=== PATIENT | male | born 1995 | race Caucasian/White ===

== ENCOUNTER 2016-12-13 14:43 | Emergency (ER) | payer OTHER, MEDICAID ==
[2016-12-13 14:54] VITALS: BP 129/92
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
[2016-12-13] MEDS ORDERED: Amoxicillin 250 MG Cap PO ONE (16:02)
== END 2016-12-13 16:20 | disposition home or self-care (01) ==
LOC: MERGE 14:43 → LL.ED 14:43
DX: S02.40EA Zygomatic fracture, right side, initial encounter for closed fracture (principal); Y04.0XXA Assault by unarmed brawl or fight, initial encounter; Z91.011 Allergy to milk products; Z79.899 Other long term (current) drug therapy
CPT/HCPCS: 70486; 99283; A9270; 21400

== ENCOUNTER 2017-04-08 14:44 | Emergency (ER) | payer MEDICAID, OTHER ==
[2017-04-08 14:57] VITALS: BP 120/76
[2017-04-08] MEDS ORDERED: Sodium Chloride 0.9% 10 ML Syringe FLUSH PRN (15:09)
[2017-04-08] MEDS ORDERED: Ketorolac 30 MG/ML SDV IVPUSH ONE (15:15)
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
[2017-04-08] MEDS ORDERED: Diphtheria,Pertussis(Acell),Tetanus Vaccine 0.5 ML SDV IM ONE (16:20)
== END 2017-04-08 16:50 | disposition home or self-care (01) ==
LOC: LL.ED 14:44
DX: S61.412A Laceration without foreign body of left hand, initial encounter (principal); S61.411A Laceration without foreign body of right hand, initial encounter; S70.02XA Contusion of left hip, initial encounter; S80.811A Abrasion, right lower leg, initial encounter; Z23 Encounter for immunization; F17.210 Nicotine dependence, cigarettes, uncomplicated; Z91.011 Allergy to milk products; W14.XXXA Fall from tree, initial encounter
CPT/HCPCS: 71020; 72100; 73502; 81001; 90471; 90715; 96374; 99284; J1885; J7050

== ENCOUNTER 2019-03-30 01:10 | Emergency (ER) | payer MEDICAID ==
[2019-03-30 01:25] VITALS: BP 114/74; PULSE 70
--- NOTE | 2019-03-30 01:26 | EDM.PDOC ---
ED HPI GENERAL MEDICAL PROBLEM - General Chief Complaint: Upper Extremity Injury/Pain Stated Complaint: hand pain/injury Time Seen by Provider: 03/30/19 01:20 Source of Information: Reports: Patient, Old Records ([facility] chart/EMR), Significant Other History Limitations: Reports: No Limitations - History of Present Illness INITIAL COMMENTS - FREE TEXT/NARRATIVE: The patient was brought to the emergency room via private automobile by his significant other for evaluation of 13/10 right hand pain secondary to an injury at home, which occurred at about 00:30 hours this morning. The patient was angry when he hit a wall at his home with a stud apparently in this area. He is right-handed and has not injured this hand in the past. The patient did use some ice packs, however no other medications treatment prior to arrival. No history of paresthesias, neurological deficits, or other complaints or injuries. No recent history of abdominal pain, heartburn, nausea, diarrhea, melena, gross hematochezia, or any food intolerance, including fatty foods, etc.. The patient also denies any recent fever, cough, wheezing, dyspnea, etc.. Onset: Today, Sudden Onset Date: 03/30/19 Onset Time: 00:30 Duration: Constant Location: Reports: Upper Extremity, Right, Radiates to (Up his right arm). Denies: Head, Face, Neck, Abdomen, Back, Pelvis, Upper Extremity, Left Quality: Reports: Same as Previous Episode, Stabbing, Throbbing Severity: Severe Improves with: Reports: Rest Worsens with: Reports: Movement Context: Reports: Trauma Associated Symptoms: Reports: No Other Symptoms. 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 Denies: Allergic Rhinitis, Hard of Hearing, Impaired Vision Cardiovascular History: Reports: None. Denies: Afib, Aneurysm, Arrhythmia, Blood Clots/VTE/DVT, Heart Murmur, High Cholesterol, Hypertension, Syncope Respiratory History: Reports: None. Denies: Asthma, COPD, Intubation, Previous Gastrointestinal History: Reports: GERD. Denies: GI Bleed, PUD Genitourinary History: Reports: None. Denies: Acute Renal Failure, Chronic Renal Insuffiency, Renal Calculus, STD Musculoskeletal History: Reports: Arthritis, Back Pain, Chronic, Fracture, Osteoarthritis, Other (See Below) Other Musculoskeletal History: Bilateral clavicular fractures at about age 11. Right maxillary zygomatic arch/orbital and nasal fractures on 12/11/16. Hairline right fibular fracture in 2012. Neurological History: Reports: None. Denies: Concussion, Headaches, Chronic, Head Trauma, Migraines, Seizure Psychiatric History: Reports: None. Denies: Abuse, Victim of, ADD, ADHD, Anxiety, Depression, Psych Hospitalization(s), PTSD, Suicide Attempt, Suicidal Ideation Endocrine/Metabolic History: Reports: None. Denies: Diabetes, Type I, Diabetes , Type II, Hypothyroidism, IDDM Hematologic History: Reports: None. Denies: Anemia, Blood Transfusion(s) Immunologic History: Reports: None. Denies: AIDS, HIV, SLE Oncologic (Cancer) History: Reports: None Dermatologic History: Reports: None. Denies: Eczema, Psoriasis - Infectious Disease History Infectious Disease History: Reports: Chicken Pox. Denies: C-Difficile, Measles , Meningitis, Mononucleosis, MRSA, Mumps, Pertussis (Whooping Cough), Rheumatic Fever, Scarlet Fever, Shingles, TB, VRE - Past Surgical History Head Surgeries/Procedures: Reports: None HEENT Surgical History: Reports: Oral Surgery, Other (See Below). Denies: Adenoidectomy, Eye Surgery, Laser Surgery, Myringotomy w Tube(s), Naso-Sinus Surgery, Tonsillectomy Other HEENT Surgeries/Procedures: [place] teeth extraction 2 upper in about 2013 Cardiovascular Surgical History: Reports: None. Denies: Varicose Respiratory Surgical History: Reports: None. Denies: Thoracentesis GI Surgical History: Reports: None. Denies: Appendectomy, Cholecystectomy, Colonoscopy, EGD, Hernia, Abdominal, Hernia, Inguinal, Hernia Repair/Other Male Surgical History: Reports: Circumcision, Other (See Below). Denies: Vasectomy Other Male Surgeries/Procedures: Circumcision as an infant. Endocrine Surgical History: Reports: None. Denies: Thyroid Biopsy Neurological Surgical History: Reports: None. Denies: C-Spine, Discectomy, Laminectomy, Lumbar Spine, Sacral Spine, Spinal Fusion, Thoracic Spine, Vertebroplasty Musculoskeletal Surgical History: Reports: None. Denies: Arthroscopic Procedure , Carpal Tunnel, Ganglion Cyst, Joint Replacement, ORIF, Shoulder Surgery Oncologic Surgical History: Reports: None Dermatological Surgical History: Reports: None Social & Family History - Family History Family Medical History: Noncontributory - Tobacco Use Smoking Status *Q: Current Every Day Smoker Tobacco Use Within Last Twelve Months: Cigarettes Years of Tobacco use: 9 Packs/Tins Daily: 0.5 Packs/Tins Daily Comment: Started smoking at age 14 with maximum use of one pack per day. Used Tobacco, but Quit: No Smoking Cessation Information Provided To Patient: Yes Second Hand Smoke Exposure: Yes Source of Second Hand Smoke Exposure: Significant other Second Hand Smoke Education Provided: Yes - Caffeine Use Caffeine Use: Reports: Coffee (One cup per week), Energy Drinks (One can per week), Soda (1 soda per month), Tea (1 L 4 times per week) - Alcohol Use Alcohol Use History: Yes Days Per Week of Alcohol Use: 2 Number of Drinks Per Day: 12 Number of Drinks Per Day Comment: Usually beer with occasional mixed drinks. No previous DWIs, problems with alcohol abuse, etc. Total Drinks Per Week: 24 Date of Last Drink: 03/30/19 Alcohol Use in Last Twelve Months: Yes Alcohol Use Frequency: Binges - Recreational Drug Use Recreational Drug Use: Yes Drug Use in Last 12 Months: No Recreational Drug Type: Reports: Marijuana/Hashish (Experimented 2012). 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 ED EXAM, GENERAL - Physical Exam Exam: See Below Exam Limited By: No Limitations General Appearance: Alert, WD/WN, No Apparent Distress Head: Atraumatic, Normocephalic. No: Facial Swelling, Facial Tenderness, Sinus Tenderness Neck: Normal Inspection, Supple, Non-Tender, Full Range of Motion. No: Lymphadenopathy (L), Lymphadenopathy (R), Thyromegaly Respiratory/Chest: No Respiratory Distress, Lungs Clear, Normal Breath Sounds, No Accessory Muscle Use, Chest Non-Tender. No: Pleural Rub, Retractions Cardiovascular: Normal Peripheral Pulses, Regular Rate, Rhythm, No Edema, No Gallop, No JVD, No Murmur, No Rub. No: Gallop/S3, Gallop/S4, Friction Rub Peripheral Pulses: 2+: Radial (L), Radial (R) GI/Abdominal: Normal Bowel Sounds, Soft, Non-Tender, No Organomegaly, No Distention, No Abnormal Bruit, No Mass, Pelvis Stable. No: Guarding (Male) Exam: Deferred Rectal (Males) Exam: Deferred Back Exam: Normal Inspection, Full Range of Motion. No: CVA Tenderness (L), CVA Tenderness (R), Muscle Spasm Extremities: No Pedal Edema, Normal Capillary Refill, Limited Range of Motion ( Right hand secondary to pain and swelling), Other (3 cm in diameter area of moderate swelling over the proximal dorsal aspect of the third and fourth metacarpals of the right hand with moderate localized tenderness by palpation in this area) Neurological: Alert, Oriented, CN II-XII Intact, Normal Cognition, Normal Gait, Normal Reflexes, No Motor/Sensory Deficits, Other (mild intoxication) Psychiatric: Anxious (Mild), Depressed Mood (Borderline) Skin Exam: Warm, Dry, Intact, Normal Color, No Rash. No: Diaphoretic, Ecchymosis, Wound/Incision Lymphatic: No Adenopathy ED TRAUMA EXTREMITY PROCEDURES - Joint Reduction Site: Other (Right proximal third and fourth metacarpals) Sedation: Hematoma/Fracture Block Local Anesthesia - Lidocaine (Xylocaine): 1% Plain Local Anesthetic Volume: Other (7 mL) Pre-Procedure NV Status: Normal Post-Procedure NV Status: Normal Technique: Traction/Counter Traction Number of Attempts: 1 Post-Reduction Imaging: Completely Reduced, Fracture Seen (As below) Joint Reduction Complications: No - Splinting Right Upper Extremity Splint Site: Right hand Pre-Procedure NV Status: Normal Post-Procedure NV Status: Normal Splint Material: Other (3" x 12" padded fiberglass splints x 2 secured with Jorge wrap2 inch) Splint Design: Other (Dorsal/ventral short arm) Applied & Form Fitted By: Provider Provider Post-Splint Application NV Check: NV Status Normal, Good Position Complications: No Course - Vital Signs Last Recorded V/S: Last Vital Signs Temp 36.5 C 03/30/19 01:10 Pulse 70 03/30/19 01:10 Resp 20 03/30/19 01:10 BP 114/74 03/30/19 01:10 Pulse Ox 96 03/30/19 01:10 Vital Signs - 24 hr 03/30/19 01:10 Temperature [ 36.5 C Temporal] Pulse, 70 Peripheral [ Pulse Oximetry] Respiratory 20 Rate Blood Pressure 114/74 [Left Upper Arm ] O2 Sat by Pulse 96 Oximetry - Orders/Labs/Meds Orders: Active Orders 24 hr Category Date Time Status Hand 2V Rt [CR] Stat Exams 03/30/19 01:59 Taken Hand Comp Min 3V Rt [CR] Stat Exams 03/30/19 01:27 Taken Obtain Past Medical Record [OM.PC] Routine Oth 03/30/19 01:26 Active Labs: None Meds: Medications Discontinued Medications Generic Name Dose Route Start Last Admin Trade Name Freq PRN Reason Stop Dose Admin Lidocaine HCl 5 ml 03/30/19 01:51 03/30/19 01:55 Xylocaine-Mpf 1% INJECT 03/30/19 01:52 5 ml ONETIME ONE Administration Lidocaine HCl 5 ml 03/30/19 01:51 03/30/19 01:55 Xylocaine-Mpf 1% INJECT 03/30/19 01:52 5 ml ONETIME ONE Administration - Radiology Interpretation Free Text/Narrative:: X-rays of the right hand, 3 views, shows evidence of a dorsal dislocation of the proximal third and fourth metacarpals with no fractures visible X-rays of the right hand, 2 views-postreduction, shows evidence of complete reduction of above dislocations with probable mild avulsion fracture of the proximal aspect of the fourth metacarpal Departure - Departure Time of Disposition: 03:07 Disposition: Home, Self-Care 01 Condition: Good Clinical Impression: Dislocation of metacarpal (bone), proximal end of right hand, initial encounter , Tobacco abuse counseling Fracture of metacarpal bone Qualifiers: Encounter type: initial encounter Metacarpal bone: fourth Fracture type: closed Metacarpal location: base Fracture alignment: displaced Laterality: right Qualified Code(s): S62.314A - Displaced fracture of base of fourth metacarpal bone, right hand, initial encounter for closed fracture Osteoarthritis Qualifiers: Osteoarthritis location: multiple joints Osteoarthritis type: primary Qualified Code(s): M15.0 - Primary generalized (osteo)arthritis - Discharge Information *PRESCRIPTION DRUG MONITORING PROGRAM REVIEWED*: Not Applicable *COPY OF PRESCRIPTION DRUG MONITORING REPORT IN PATIENT NEAL: Not Applicable Instructions: Health Risks of Smoking, Closed Reduction for Metacarpal Dislocation, Care After, Cast or Splint Care, Adult, [id number], Metacarpal Fracture, [id number] Referrals: Antonina Mary, [facility] [Primary Care Provider] - Forms: ED Department Discharge, ED Return to Work/School Form Additional Instructions: 1. Call for an appointment with a hand surgeon at [facility] in [place], telephone number , on 03/31 for an appointment in about one week for reevaluation, possible short arm cast placement, etc. as discussed. Your x-rays are on their PACS system. 2. Tylenol 650 mg by mouth every 4 hours and/or OTC Aleve 1-2 tabs by mouth every 12 hours with food as directed./needed. You may stagger these medications for 48-72 hours only. 3. Work excuse- See Form 4. Limited use and no lifting with the right hand as discussed until released by your hand surgeon with hand splint to be worn at all times 5. Ice packs and hand elevation as discussed 6. Stop all tobacco use CHIKA as directed/per provided information and consider contacting [employer]uit [employer]ne, etc.. 7. Discontinue all energy drinks and decrease alcohol intake as discussed 8. Immediately after this visit verify that your cellular telephone's voicemail has been activated and is empty. Also verify that your home telephone 's answering machine is operating properly and has space to receive messages. Note that it is sometimes necessary for us to be able to contact you at a later date to discuss your medical care. 9. Please remember that we are ALWAYS here for you and want to answer any questions you may have. Feel free to call the hospital any time and we call you back CHIKA. - Problem List & Annotations (1) Dislocation of metacarpal (bone), proximal end of right hand, initial encounter SNOMED Code(s): 042790028 Code(s): S63.064A - DISLOC OF MC (BONE), PROXIMAL END OF RIGHT HAND, INIT Status: Acute Priority: High Onset Date: 03/30/19 Annotation/Comment:: Successful reduction without difficulty and/or complications of the proximal third and fourth metacarpals of the right hand with subsequent splint placement as above. Activity restrictions, etc. discussed. Work Excuse provided. The patient wishes to follow-up at the [facility] in [place] with hand surgeon evaluation as per discharge orders. X-rays submitted to [facility] via PACS (2) Fracture of metacarpal bone SNOMED Code(s): 298903253 Code(s): S62.309A - UNSP FRACTURE OF UNSP METACARPAL BONE, INIT FOR CLOS FX Status: Acute Priority: High Onset Date: 03/30/19 Annotation/Comment:: Mild post reduction avulsion fracture noted, which is likely present at time of initial injury with no complications with reduction as above. Qualifiers: Encounter type: initial encounter Metacarpal bone: fourth Fracture type: closed Metacarpal location: base Fracture alignment: displaced Laterality : right Qualified Code(s): S62.314A - Displaced fracture of base of fourth metacarpal bone, right hand, initial encounter for closed fracture (3) Osteoarthritis SNOMED Code(s): 995143027 Code(s): M19.90 - UNSPECIFIED OSTEOARTHRITIS, UNSPECIFIED SITE Status: Chronic Priority: Medium Annotation/Comment:: Otherwise stable by history Qualifiers: Osteoarthritis location: multiple joints Osteoarthritis type: primary Qualified Code(s): M15.0 - Primary generalized (osteo)arthritis (4) Tobacco abuse counseling SNOMED Code(s): 077843379, 304538016, 341042821 Code(s): Z71.6 - TOBACCO ABUSE COUNSELING Status: Chronic Priority: Medium Annotation/Comment:: Tobacco cessation encouraged with information provided. Energy drink and alcohol use also discussed as per discharge instructions. - Problem List Review Problem List Initiated/Reviewed/Updated: Yes - My Orders Last 24 Hours: My Active Orders 03/30/19 01:26 Obtain Past Medical Record [OM.PC] Routine 03/30/19 01:27 Hand Comp Min 3V Rt [CR] Stat 03/30/19 01:59 Hand 2V Rt [CR] Stat - Assessment/Plan Last 24 Hours: My Active Orders 03/30/19 01:26 Obtain Past Medical Record [OM.PC] Routine 03/30/19 01:27 Hand Comp Min 3V Rt [CR] Stat 03/30/19 01:59 Hand 2V Rt [CR] Stat Assessment:: As above Plan: As above. Extensive precautions were given to the patient and his significant other, who are in agreement with the treatment plan. See Patient Instructions for further treatment and plan.
== END 2019-03-30 03:07 | disposition home or self-care (01) ==
LOC: LL.ED 01:10
DX: S62.314A Displaced fracture of base of fourth metacarpal bone, right hand, initial encounter for closed fracture (principal); S62.316A Displaced fracture of base of fifth metacarpal bone, right hand, initial encounter for closed fracture; F17.210 Nicotine dependence, cigarettes, uncomplicated; M15.0 Primary generalized (osteo)arthritis; Z91.011 Allergy to milk products; W22.8XXA Striking against or struck by other objects, initial encounter
CPT/HCPCS: 26605; 73120; 73130; 99283; J2001

== ENCOUNTER 2021-02-09 12:45 | Emergency (ER) | payer BC ==
[2021-02-09 13:01] VITALS: BP 141/88; PULSE 79
--- NOTE | 2021-02-09 13:24 | EDM.PDOC ---
ED HPI GENERAL MEDICAL PROBLEM - General Chief Complaint: Upper Extremity Injury/Pain Stated Complaint: left shoulder injury Time Seen by Provider: 02/09/21 12:48 Source of Information: Reports: Patient History Limitations: Reports: No Limitations - History of Present Illness INITIAL COMMENTS - FREE TEXT/NARRATIVE: Patient comes to ER with complaint of left shoulder pain. Fell onto shoulder when he was 'messing around with his friends' last night. Denies other injuries. Pain is located posterior shoulder joint. Worse with lifts left arm past 90 degrees. No numbness or tingling or weakness of left arm/hand. Denies other injuries/complaints. Treatments CHILDCARE DIRECTOR: Reports: Cold Therapy, Nitroglycerin Left Shoulder Pain Score (Numeric/FACES): 5 - Related Data Home Meds: Home Meds Naproxen Sodium [Aleve] 220 mg PO TID PRN 03/30/19 [History] Famotidine 40 mg PO DAILY 02/09/21 [History] Omeprazole 20 mg PO DAILY 02/09/21 [History] tiZANidine [Zanaflex] 1 tab PO Q4H 02/09/21 [History] Past Medical History - Past Health History Medical/Surgical History: Denies Medical/Surgical History HEENT History: Reports: None Cardiovascular History: Reports: None Respiratory History: Reports: None Gastrointestinal History: Reports: GERD Genitourinary History: Reports: None Musculoskeletal History: Reports: Arthritis, Back Pain, Chronic, Fracture, Osteoarthritis, Other (See Below) Other Musculoskeletal History: Bilateral clavicular fractures at about age 11. Right maxillary zygomatic arch/orbital and nasal fractures on 12/11/16. Hairline right fibular fracture in 2012. Neurological History: Reports: None Psychiatric History: Reports: None Endocrine/Metabolic History: Reports: None Hematologic History: Reports: None Immunologic History: Reports: None Oncologic (Cancer) History: Reports: None Dermatologic History: Reports: None - Infectious Disease History Infectious Disease History: Reports: Chicken Pox - Past Surgical History Head Surgeries/Procedures: Reports: None HEENT Surgical History: Reports: Oral Surgery, Other (See Below) Other HEENT Surgeries/Procedures: [place] teeth extraction 2 upper in about 2013 Cardiovascular Surgical History: Reports: None Respiratory Surgical History: Reports: None GI Surgical History: Reports: None Male Surgical History: Reports: Circumcision, Other (See Below) Other Male Surgeries/Procedures: Circumcision as an . Endocrine Surgical History: Reports: None Neurological Surgical History: Reports: None Musculoskeletal Surgical History: Reports: None, Other (See Below) Other Musculoskeletal Surgeries/Procedures:: right hand surgery with pin placement. 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 ED EXAM, GENERAL - Physical Exam Exam: See Below Exam Limited By: No Limitations General Appearance: Alert, WD/WN, No Apparent Distress Eye Exam: Bilateral Eye: EOMI, PERRL Ears: Hearing Grossly Normal Nose: No: Nasal Deformity, Nasal Swelling, Nasal Drainage Throat/Mouth: Normal Lips, Normal Voice, No Airway Compromise Head: Normocephalic Neck: Supple Respiratory/Chest: No Respiratory Distress, Lungs Clear, Normal Breath Sounds, No Accessory Muscle Use Cardiovascular: Normal Peripheral Pulses, Regular Rate, Rhythm, No Murmur GI/Abdominal: Soft, Non-Tender (Male) Exam: Deferred Rectal (Males) Exam: Deferred Back Exam: No: Muscle Spasm, Paraspinal Tenderness, Vertebral Tenderness Extremities: Normal Capillary Refill, Other (Good overall ROM but patient has discomfort when raising left arm above 90 degrees anteriorly and laterally. No crepitus. Point tender posterior left shoulder joint area. Scapula nontender. Ribs/chest nontender. ) Neurological: Alert, Oriented, Normal Cognition, Normal Gait, Other (sensation intact) Psychiatric: Normal Affect, Normal Mood Skin Exam: Warm, Dry, Intact, Normal Color. No: Ecchymosis, Increased Warmth Course - Vital Signs Last Recorded V/S: Last Vital Signs Temp 37.2 C 02/09/21 12:55 Pulse 79 02/09/21 12:55 Resp 16 02/09/21 12:55 BP 141/88 H 02/09/21 12:55 Pulse Ox 98 02/09/21 12:55 - Orders/Labs/Meds Orders: Active Orders 24 hr Category Date Time Status Shoulder Comp Lt [CR] Stat Exams 02/09/21 12:48 Taken - Re-Assessments/Exams Free Text/Narrative Re-Assessment/Exam: 02/09/21 13:28 No obvious bony injury on xray. Pending radiology review. Patient placed in prefab sling for comfort. Declines additional pain medication. Is using Naproxyn Sodium at home for discomfort. Work slip given for Mon/e off. To follow up at his clinic for recheck and further restrictions as needed. May need to consider MRI if pain persists to rule out rotator cuff injury. Patient in agreement with plan. Consider Ortho walk in clinic in [place] also for follow up. Departure - Departure Time of Disposition: 13:21 Disposition: Home, Self-Care 01 Condition: Good Clinical Impression: Injury of left shoulder Qualifiers: Encounter type: initial encounter Qualified Code(s): S49.92XA - Unspecified injury of left shoulder and upper arm, initial encounter - Discharge Information *PRESCRIPTION DRUG MONITORING PROGRAM REVIEWED*: Not Applicable *COPY OF PRESCRIPTION DRUG MONITORING REPORT IN PATIENT NEAL: Not Applicable Instructions: How To Use a Sling, [id number], Shoulder Pain, [id number] Referrals: Beto Paieg PA-C [Primary Care Provider] - Forms: ED Department Discharge, ED Return to Work/School Form Additional Instructions: Wear sling for comfort and support. Ibuprofen or Aleve or Tylenol for pain. Ice sore area frequently to help with pain. Make appointment for follow up at clinic on Wednesday for recheck. Reassess at that time. May need to consider MRI to look for ligament or other soft tissue injury if pain does not significantly improve within a week or two. May also want to consider physical therapy maru pacheco. Sepsis Event Note (ED) - Evaluation Sepsis Screening Result: No Definite Risk - Focused Exam Vital Signs: Vital Signs Temp Pulse Resp BP Pulse Ox 02/09/21 12:55 37.2 C 79 16 141/88 H 98 - My Orders Last 24 Hours: My Active Orders 02/09/21 12:48 Shoulder Comp Lt [CR] Stat - Assessment/Plan Last 24 Hours: My Active Orders 02/09/21 12:48 Shoulder Comp Lt [CR] Stat
== END 2021-02-09 13:33 | disposition home or self-care (01) ==
LOC: LL.ED 12:45
DX: S49.92XA Unspecified injury of left shoulder and upper arm, initial encounter (principal); K21.9 Gastro-esophageal reflux disease without esophagitis; Z79.899 Other long term (current) drug therapy; W19.XXXA Unspecified fall, initial encounter
CPT/HCPCS: 73030-LT; 99283; 99283-25

== ENCOUNTER 2023-05-26 11:15 | Emergency (ER) | payer OTHER, BC ==
[2023-05-26] MEDS ORDERED: Lidocaine 2% 5 ML SDV INJECT ONE (11:38)
[2023-05-26 12:33] VITALS: BP 132/94; PULSE 76
[2023-05-26] MEDS ORDERED: Diphtheria,Pertussis(Acell),Tetanus Vaccine 0.5 ML Syringe IM ONE (13:50)
[2023-05-26] MEDS ORDERED: Bacitracin Oint 1 GM U/D Packet TOP ONE (13:52)
== END 2023-05-26 14:11 | disposition home or self-care (01) ==
LOC: SUPCPDRO 11:15 → LL.ED 11:15
DX: S61.213A Laceration without foreign body of left middle finger without damage to nail, initial encounter (principal); K21.9 Gastro-esophageal reflux disease without esophagitis; F17.210 Nicotine dependence, cigarettes, uncomplicated; Z23 Encounter for immunization; X58.XXXA Exposure to other specified factors, initial encounter
CPT/HCPCS: 12001; 73120-LT; 90471; 90715; 99283; 99283-25; J3490